=== PATIENT | female | born 1980 | race African-American/Black ===

== ENCOUNTER 2021-11-09 15:22 | Emergency (ER) | payer OTHER ==
[~2021-11-09] VITALS: Ht 170.2 cm; Wt 90.7 kg
[2021-11-09] MEDS ORDERED: FLUORESCEIN SOD(OPTH) 1 MG STRP ONE (15:48)
[2021-11-09] MEDS ORDERED: TETRACAINE HCL 0.5% OPTH SOLN 4 ML BTL ONE (15:48)
== END 2021-11-09 17:20 | disposition home or self-care (01) ==
LOC: ER 15:52
DX: S01.112A Laceration without foreign body of left eyelid and periocular area, initial encounter (principal); W21.03XA Struck by baseball, initial encounter; Y93.64 Activity, baseball; Y92.320 Baseball field as the place of occurrence of the external cause
CPT/HCPCS: 99284